=== PATIENT | female | born 1940 | race Caucasian/White ===

== ENCOUNTER → 2019-12-13 | Outpatient (CLI) | payer BC ==
[2019-12-02 11:15] VITALS: BP 145/66
[~2019-12-13] MED LIST: AMOX1TAB10 PO; ASPI-630 PO; DICL100G54 TP; LOSA100T14 PO; NIFE60TA14 PO; PANT40TA77 PO; TRAM50TA PO
[2019-12-13 14:44] LABS: CALCIUM 8.9 mg/dL (8.5-10.1); CREATININE 1.3 mg/dL (0.6-1.0); GFR 39.5; POTASSIUM 4.3 mmol/L (3.5-5.1)
[2019-12-13 14:50] LABS: ALBUMIN 2.4 g/dL (3.4-5.0); ALBUMIN/GLOBULIN RATIO 0.5 (1.0-1.7); TOTAL BILIRUBIN 1.1 mg/dL (0.2-1.0)
[2019-12-13 15:08] LABS: BASO # 0.2 x10^3/uL (0.0-0.2); BASO % 1 % (0-3); EOS # 0.6 x10^3/uL (0.0-0.7); EOS % 3 % (0-3); HEMATOCRIT 34.3 % (36.0-47.0); HEMOGLOBIN 11.2 g/dL (12.0-15.5); LYMPH # 2.1 x10^3/uL (1.0-4.8); LYMPH % 12 % (24-48); MEAN CORPUSCULAR HEMOGLOBIN 29 pg (25-35); MEAN CORPUSCULAR HGB CONC 33 g/dL (31-37); MEAN CORPUSCULAR VOLUME 88 fL (79-100); MONO # 1.4 x10^3/uL (0.0-1.1); MONO % 8 % (0-9); NEUT # 13.8 x10^3/uL (1.8-7.7); NEUT % 76 % (31-73); PLATELET COUNT 403 x10^3/uL (140-400); RED CELL DISTRIBUTION WIDTH 15.7 % (11.5-14.5); WHITE BLOOD COUNT 18.1 x10^3/uL (4.0-11.0)
[2019-12-13 16:24] LABS: % BANDS 16 % (0-9); % BASOS 1 % (0-3); % EOS 3 % (0-5); % LYMPHS 15 % (24-48); % MONOS 7 % (0-10); % SEGS 58 % (35-66); PLT ESTIMATE ADEQUATE (ADEQUATE)
== END ==
LOC: ONCLAB 14:12
PROVIDERS: ATTEND Internal Medicine Hematology & Oncology
DX: C78.7 Secondary malignant neoplasm of liver and intrahepatic bile duct (principal)
CPT/HCPCS: 36415; 80053; 85007; 85025